=== PATIENT | female | born 1990 | race American Indian/Alaskan Native ===

== ENCOUNTER 2020-07-14 12:04 | Emergency (ER) | payer MEDICAID ==
[2020-07-14 12:27] VITALS: BP 138/81
--- NOTE | 2020-07-14 13:53 | XRay Report ---
RIGHT KNEE 3 VIEW(S) INDICATION / CLINICAL INFORMATION: knee pain and stiffness COMPARISON: None available. FINDINGS: BONES / JOINT(S): No acute fracture or subluxation. No significant arthritis. SOFT TISSUES: No significant abnormality. ADDITIONAL FINDINGS: None. Signer Name: Mike Harmon MD Signed: 07/14/2020 1:49 PM Workstation Name: [id number]
--- NOTE | 2020-07-14 16:24 | Emergency Department Report ---
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 and begin to develop some atraumatic pain and swelling to the right knee) Severity: mild, moderate - Related Data Previous Rx's Medication Instructions Recorded Last Taken Type Ketorolac [Toradol] 10 mg PO Q8HR PRN #14 tablet 07/14/20 Unknown Rx Allergies Allergy/AdvReac Type Severity Reaction Status Date / Time No Known Allergies Allergy Unverified 07/14/20 12:16 ED Review of Systems ROS: Stated complaint: LEG PAINS RIGHT Other details as noted in HPI Comment: All other systems reviewed and negative ED Past Medical Hx - Past Medical History Previous Medical History?: No - Surgical History Past Surgical History?: Yes Additional Surgical History: bilatteral hip surgery - Social History Smoking Status: Never Smoker Substance Use Type: None - Medications Home Medications: Home Medications Medication Instructions Recorded Confirmed Last Taken Type Ketorolac [Toradol] 10 mg PO Q8HR PRN #14 tablet 07/14/20 Unknown Rx ED Physical Exam - General Limitations: No Limitations General appearance: alert, in no apparent distress - Head Head exam: Present: atraumatic, normocephalic - Eye Eye exam: Present: normal appearance - ENT ENT exam: Present: mucous membranes moist - Neck Neck exam: Present: normal inspection - Respiratory Respiratory exam: Present: normal lung sounds bilaterally. Absent: respiratory distress - Cardiovascular Cardiovascular Exam: Present: regular rate, normal rhythm. Absent: systolic murmur, diastolic murmur, rubs, gallop - GI/Abdominal GI/Abdominal exam: Present: soft, normal bowel sounds - Extremities Exam Extremities exam: Present: normal inspection, tenderness - Expanded Lower Extremity Exam Right Upper Leg exam: Present: normal inspection Knee exam: Present: tenderness, swelling, pain w/ pronation/supination (Pain), pain/laxity with valgus (Pain). Absent: laceration, ecchymosis, deformity, crepidus, dislocation, erythema, posterior draw sign, pain/laxity with varus Lower Leg exam: Present: normal inspection, full ROM - Back Exam Back exam: Present: normal inspection - Neurological Exam Neurological exam: Present: alert, oriented X3 - Psychiatric Psychiatric exam: Present: normal affect, normal mood - Skin Skin exam: Present: warm, dry, intact, normal color. Absent: rash ED Course Vital Signs 07/14/20 12:14 Temperature 98.0 F Pulse Rate 109 H Respiratory 18 Rate Blood Pressure 138/81 O2 Sat by Pulse 98 Oximetry ED Lower Extremity MDM - Radiology Data [facility] [address] [place] [address] XRay Report Signed Patient: MALACHI TAM MR#: [id number] : 1990 Acct:[id number] Age/Sex: 29 / F ADM Date: 07/14/20 Loc: ED Attending Dr: Ordering Physician: KODY DIAZ Date of Service: 07/14/20 Procedure(s): XR knee 3V RT Accession Number(s): [id number] cc: KODY DIAZ Fluoro Time In Minutes: RIGHT KNEE 3 VIEW(S) INDICATION / CLINICAL INFORMATION: knee pain and stiffness COMPARISON: None available. FINDINGS: BONES / JOINT(S): No acute fracture or subluxation. No significant arthritis. SOFT TISSUES: No significant abnormality. ADDITIONAL FINDINGS: None. Signer Name: Mike Harmon MD Signed: 07/14/2020 1:49 PM Workstation Name: [id number] Transcribed By: TL Dictated By: Mike Harmon MD Electronically Authenticated By: Mike Harmon MD Signed Date/Time: 07/14/20 134 DD/ 134 TD/TT: Critical care attestation.: If time is entered above; I have spent that time in minutes in the direct care of this critically ill patient, excluding procedure time. ED Disposition Clinical Impression: Knee pain Disposition: DC-01 TO HOME OR SELFCARE Is pt being admited?: No Does the pt Need Aspirin: No Condition: Stable Instructions: Arthralgia (ED), Knee Immobilizer (ED), Knee Pain (ED), Knee Bur sitis (ED), Menthol (By mouth), RICE Therapy (ED), Ice Pack Application (ED) Prescriptions: Ketorolac [Toradol] 10 mg PO Q8HR PRN #14 tablet PRN Reason: Pain Referrals: PRIMARY CAREMD [Primary Care Provider] - 3-5 Days PETRA SOL MD [Staff Physician] - 3-5 Days
== END 2020-07-14 16:44 | disposition home or self-care (01) ==
LOC: ED 12:04
DX: M25.561 Pain in right knee (principal); Z98.890 Other specified postprocedural states; Z79.899 Other long term (current) drug therapy